=== PATIENT | female | born 1985 | race African-American/Black ===

== ENCOUNTER 2022-08-13 16:19 | Emergency (ER) | payer MEDICAID ==
[~2022-08-13] VITALS: Ht 162.6 cm; Wt 73.0 kg
[2022-08-13 16:23] VITALS: BP 142/70
== END 2022-08-13 19:41 | disposition left against medical advice (07) ==
LOC: ER 16:19
DX: Z53.21 Procedure and treatment not carried out due to patient leaving prior to being seen by health care provider (principal)